=== PATIENT | female | born 1950 | race Caucasian/White ===

== ENCOUNTER 2019-03-08 12:55 | Day surgery (SDC) | payer BC ==
[~2019-03-08] VITALS: Ht 157.5 cm; Wt 102.2 kg
[~2019-03-08 12:55] MED LIST: ALEV220T22 PO; ASPI81TA26 PO; ATOR1TAB21 PO; CHOL50003 PO; CO Q100C10 PO; COUM1TAB18 PO; CVS5000S2 SL; HYDR-3644 OR; HYDR25TAB PO; LIPI20TA PO; LUTE6CAP PO; LUTE6TAB2 PO; METO100T3 PO; METO1TAB33 PO; NS 1,000 ML IV ONE; OXYC1TAB23 PO; TYLE325T5 PO; VITA500019 PO; VITA500T3 PO
[2019-03-08] MEDS ORDERED: PROPOFOL 200 MG/20 ML VIAL As Ordered ONE ×2 (14:58→14:59)
[2019-03-08] MEDS ORDERED: LIDOCAINE 2% INJ 100 MG/5 ML SDV (FOR ANES.) As Ordered ONE (14:59)
--- NOTE | 2019-03-08 15:21 | ROOR ---
Patient Name: Marta Heredia Procedure Date: 03/08/2019 2:42 PM Date of : 1950 Age: 68 Room: [facility] Gender: Female Note Status: Finalized Procedure: Colonoscopy Indications: Screening for colorectal malignant neoplasm Providers: Dl Gill Jr, MD Referring MD: Ana Shaffer DO Requesting Provider: Medicines: Propofol per Anesthesia Complications: No immediate complications. Procedure: Pre-Anesthesia Assessment: - Prior to the procedure, a History and Physical was performed, and patient medications and allergies were reviewed. The patient is competent. The risks and benefits of the procedure and the sedation options and risks were discussed with the patient. All questions were answered and informed consent was obtained. Patient identification and proposed procedure were verified by the physician and the nurse in the pre-procedure area and in the procedure room. Mental Status Examination: alert and oriented. Airway Examination: normal oropharyngeal airway and neck mobility. Respiratory Examination: clear to auscultation. CV Examination: normal. ASA Grade Assessment: II - A patient with mild systemic disease. After reviewing the risks and benefits, the patient was deemed in satisfactory condition to undergo the procedure. The anesthesia plan was to use moderate sedation / analgesia (conscious sedation). Immediately prior to administration of medications, the patient was re-assessed for adequacy to receive sedatives. The heart rate, respiratory rate, oxygen saturations, blood pressure, adequacy of pulmonary ventilation, and response to care were monitored throughout the procedure. The physical status of the patient was re-assessed after the procedure. The Colonoscope was introduced through the anus and advanced to the cecum, identified by appendiceal orifice and ileocecal valve. The colonoscopy was performed without difficulty. The patient tolerated the procedure well. The quality of the bowel preparation was adequate. Findings: The rectum, recto-sigmoid colon, descending colon, transverse colon, cecum, appendiceal orifice and ileocecal valve appeared normal. Multiple small and large-mouthed diverticula were found in the sigmoid colon. Three polyps were found in the transverse colon and ascending colon. The polyps were diminutive in size. These polyps were removed with a hot snare. Resection was complete, but the polyp tissue was not retrieved. A medium polyp was found in the sigmoid colon. The polyp was semi-sessile. The polyp was removed with a hot snare. Resection and retrieval were complete. To close a defect after polypectomy, two hemostatic clips were successfully placed. There was no bleeding at the end of the procedure. Impression: - The rectum, recto-sigmoid colon, descending colon, transverse colon, cecum, appendiceal orifice and ileocecal valve are normal. - Diverticulosis in the sigmoid colon. - Three diminutive polyps in the transverse colon and in the ascending colon, removed with a hot snare. Complete resection. Polyp tissue not retrieved. - One medium polyp in the sigmoid colon, removed with a hot snare. Resected and retrieved. Clips were placed. Recommendation: - Repeat colonoscopy in 1-3 year for surveillance based on pathology results. Dl Gill MD Dl Gill Jr, MD 03/08/2019 3:21:24 PM Electronically signed by Dl Gill Jr, MD Number of Addenda: 0 Note Initiated On: 03/08/2019 2:42 PM Estimated Blood Loss: Estimated blood loss: none.
[2019-03-08 15:44] VITALS: BP 148/85
== END 2019-03-08 15:56 | disposition home or self-care (01) ==
LOC: M OPP 12:55
PROVIDERS: ATTEND Surgery
DX: C18.9 Malignant neoplasm of colon, unspecified (principal); K57.30 Diverticulosis of large intestine without perforation or abscess without bleeding; Z12.11 Encounter for screening for malignant neoplasm of colon

== ENCOUNTER → 2022-12-14 | Outpatient (CLI) | payer MEDICARE ==
[~2022-12-14] MED LIST changes: +HYDR-3490 PO; -HYDR25TAB PO; -NS 1,000 ML IV ONE; +VITA500079 PO
== END ==
LOC: M CARPUL 08:46
PROVIDERS: ATTEND Family Medicine
DX: R94.31 Abnormal electrocardiogram [ECG] [EKG] (principal)

== ENCOUNTER 2023-04-21 11:40 | Day surgery (SDC) | payer MEDICARE ==
[~2023-04-21] VITALS: Ht 157.5 cm; Wt 97.5 kg
[~2023-04-21 11:40] MED LIST changes: +LIDOCAINE 2% 100MG/5ML SDV (FOR ANES.) As Ordered ONE; +LUTE25CA PO; +MAGN400C PO; +VIT1LOZE2 MM; +VITA100093 PO; +VITACAP8 PO; +propofoL 200 MG/20 ML VIAL As Ordered ONE
[2023-04-21] MEDS: NS 1,000 ML IV ONE (12:11)
[2023-04-21] MEDS ORDERED: hydrALAZINE 20MG/ML 1ML VIAL As Ordered ONE (13:05)
[2023-04-21 13:27] VITALS: TEMP 97.6
[2023-04-21 13:46] VITALS: BP 136/63; O2SAT 98
== END 2023-04-21 14:04 | disposition home or self-care (01) ==
LOC: M OPP 11:40
PROVIDERS: ATTEND Surgery
DX: Z85.038 Personal history of other malignant neoplasm of large intestine (principal); Z86.010 Personal history of colon polyps; K57.30 Diverticulosis of large intestine without perforation or abscess without bleeding; I10 Essential (primary) hypertension; M19.90 Unspecified osteoarthritis, unspecified site; Z87.891 Personal history of nicotine dependence; Z96.643 Presence of artificial hip joint, bilateral; Z79.82 Long term (current) use of aspirin; Z79.899 Other long term (current) drug therapy
CPT/HCPCS: G0105; J0360